=== PATIENT | male | born 1985 | race Caucasian/White ===

== ENCOUNTER 2020-03-12 07:19 | Emergency (ER) | payer BC ==
[~2020-03-12] VITALS: Ht 175.3 cm; Wt 70.5 kg
[2020-03-12 07:23] VITALS: TEMP 98.5
[2020-03-12 08:31] VITALS: BP 138/87; PULSE 79
== END 2020-03-12 08:27 | disposition home or self-care (01) ==
LOC: COL.ER 07:19
DX: S61.211A Laceration without foreign body of left index finger without damage to nail, initial encounter (principal); W26.8XXA Contact with other sharp object(s), not elsewhere classified, initial encounter; Y92.009 Unspecified place in unspecified non-institutional (private) residence as the place of occurrence of the external cause

== ENCOUNTER 2020-03-24 19:08 | Emergency (ER) | payer BC ==
[2020-03-24 19:33] VITALS: BP 149/95; PULSE 79; TEMP 98.6
== END 2020-03-25 ==
LOC: COL.ER 19:08
DX: Z48.02 Encounter for removal of sutures (principal)